=== PATIENT | male | born 1955 | race Two or more races ===

== ENCOUNTER 2017-02-16 07:32 | Emergency (ER) | payer BC ==
[2017-02-16 07:39] VITALS: BMI 32.3
[2017-02-16] MEDS ORDERED: KETOROLAC TROMETHAMINE 30 MG/1 ML VIAL IVPUSH ONE (08:07)
[2017-02-16] MEDS ORDERED: SODIUM CHLORIDE 1,000 ML IV ONE (08:07)
--- NOTE | 2017-02-16 08:09 | PDOC ---
History of Present Illness <Jonathan Watters - Last Filed: 02/16/17 10:09> - History of Present Illness Initial Comments: 02/16/17 08:33 The patient is a 61 year old male, with a significant past medical history of kidney stones (last dx 15 yrs ago), who presents to the emergency department with right flank pain since 1 am this morning. Patient states that around 1 am, he began experiencing sudden onset of upper epigastric, RUQ and right flank pain, followed by multiple episodes of nausea and vomiting (non-bloody, non bilious) (10x). He took 800 mg Ibuprofen around 2 am.. He describes his right flank pain as sharp, constant,radiates to abdomen, and rates 9/10. He also reports diarrhea (5x). He also reports that he felt like he had to pass a BM but he did not pass anything. He denies excessive NSAIDS use, or EtOH use. He states the pain feels like his usual kidney stones. He denies any recent fevers, chills, headache or dizziness. He denies any recent chest pain, pressure, or shortness of breath. He denies any recent dysuria, frequency, urgency or hematuria. Allergies:NKDA Past surgical history: None reported. Social History: Nonsmoker. Social EtOH use and no recreational drug use. <Vandana Davis - Last Filed: 02/16/17 10:19> - General Chief Complaint: Pain, Acute Stated Complaint: SIDE PAIN Time Seen by Provider: 02/16/17 07:43 Past History - Past Medical History COPD: No Kidney Stones: Yes - Suicide/Smoking/Psychosocial Hx Smoking History: Never smoked <Jonathan Watters - Last Filed: 02/16/17 10:09> <Vandana Davis - Last Filed: 02/16/17 10:19> - Past Medical History Allergies/Adverse Reactions: Allergies Allergy/AdvReac Type Severity Reaction Status Date / Time No Known Allergies Allergy Verified 02/16/17 07:35 Home Medications: Ambulatory Orders Ibuprofen 800 mg PO QID PRN 02/16/17 Oxycodone HCl/Acetaminophen [Percocet 5-325 mg Tablet] 1 - 2 tab PO TID PRN #14 tab MDD 6 tabs 02/16/17 Tamsulosin HCl [Flomax] 0.4 mg PO DAILY #7 cap.er.24h 02/16/17 Review of Systems - Review of Systems Constitutional: No: Chills, Fever Respiratory: No: Cough, Shortness of Breath Cardiac (ROS): No: Chest Pain, Lightheadedness, Syncope ABD/GI: Yes: Diarrhea, Nausea, Vomiting : Yes: Flank Pain. No: Dysuria, Hematuria All Other Systems: Reviewed and Negative <Jonathan Watters - Last Filed: 02/16/17 10:09> *Physical Exam - Vital Signs Last Vital Signs Temp Pulse Resp BP Pulse Ox 97.8 F 72 18 139/105 98 02/16/17 07:36 02/16/17 07:36 02/16/17 07:36 02/16/17 07:36 02/16/17 07:36 <Jonathan Watters - Last Filed: 02/16/17 10:09> - Vital Signs Last Vital Signs Temp Pulse Resp BP Pulse Ox 97.8 F 89 18 139/105 100 02/16/17 07:36 02/16/17 08:08 02/16/17 07:36 02/16/17 07:36 02/16/17 08:08 - Physical Exam Comments: 02/16/17 08:50 GENERAL: The patient is awake, alert, and fully oriented, in no acute distress. HEAD: Normal with no signs of trauma. EYES: Pupils equal, round and reactive to light, extraocular movements intact, sclera anicteric, conjunctiva clear with no pallor. ENT: Ears normal, nares patent, oropharynx clear without exudates. Moist mucous membranes. NECK: Normal range of motion, supple without lymphadenopathy, JVD, or masses. LUNGS: Breath sounds equal, clear to auscultation bilaterally. No wheeze/ crackles. HEART: Regular rate and rhythm, normal S1 and S2 without murmur or rub. BACK: CVA tenderness. ABDOMEN: Epigastric/RUQ discomfort, no guarding or rebound. Remainder soft, nontender. Small umbilical hernia - easily reducible. No guarding or rebound. No hepatosplenomegaly. EXTREMITIES: Normal range of motion, no edema. No clubbing or cyanosis. No cords, erythema, or tenderness. NEUROLOGICAL: Cranial nerves II through XII grossly intact. Normal speech, normal gait. PSYCH: Normal mood, normal affect. SKIN: Warm, Dry, normal turgor, no rashes or lesions noted. <Vandana Davis - Last Filed: 02/16/17 10:19> Heart Score/ECG Review #1 ECG reviewed & interpreted by me at: 09:10 General ECG Interpretation: Sinus Rhythm, Normal Rate (82), Normal Intervals ( qtc 401), No acute ischemic changes (nonspecific t wave changes inferior and lateral) <Jonathan Watters - Last Filed: 02/16/17 10:09> ED Treatment Course - LABORATORY CBC & Chemistry Diagram: 02/16/17 08:10 02/16/17 08:10 <Jonathan Watters - Last Filed: 02/16/17 10:09> - LABORATORY CBC & Chemistry Diagram: 02/16/17 08:10 02/16/17 08:10 - RADIOLOGY Radiograph Interpretation: 02/16/17 10:17 CT abdomen& pelvis w/o contrast Impression: 4 mm mid right urethral calculus with mild hydronephrosis Additional bilateral nephrolithiasis. Prostatic enlargement. Reported by: Jeovany Collins - Medications Given in the ED: ED Medications Discontinued Medications Generic Name Dose Route Start Last Admin Trade Name Freq PRN Reason Stop Dose Admin Ketorolac Tromethamine 30 mg 02/16/17 08:07 02/16/17 08:11 Toradol Injection - IVPUSH 02/16/17 08:08 30 mg ONCE ONE Administration <Vandana Davis - Last Filed: 02/16/17 10:19> Medical Decision Making - Medical Decision Making 02/16/17 08:57 A portion of this note was documented by scribe services under my direction. I have reviewed the details of the note, within reason, and agree with the documentation with the following case summary and management plan written by me. 61-year-old male with no significant past medical history other than kidney stones in the past presents with acute onset of right flank and right upper abdominal/epigastric pain at 1 AM, persistent since onset and associated with several episodes of nonbloody nonbilious emesis and nonbloody diarrhea, no fevers or chills, no dysuria or hematuria. Pain is similar to past kidney stone pain as per patient, denies any history of recurring postprandial right upper quadrant pain, denies any excessive EtOH or NSAID use. Vital signs normal. Well-appearing, comfortable Cardiopulmonary exam is normal Epigastric and right upper quadrant discomfort to palpation, also with right CVA tenderness. Otherwise benign abdominal exam, soft and nondistended with reducible small umbilical hernia 61-year-old male with right flank/right upper quadrant/epigastric discomfort that began acutely around 1 AM, associated with both vomiting and diarrhea, now seemingly resolved. Patient relates this to his renal colic, rule out biliary colic or gastritis/pancreatitis. Seems less likely consistent with cardiopulmonary process, abdominal exam is otherwise normal. Labs, urinalysis EKG Pain control, antiemetic IV fluids Reassess. Imaging as per results 02/16/17 09:01 no leukocytosis, nl Cr, nl LFTs, lipase pending. UA with blood, 179 RBC. Does seem more consistent with renal stone now, but given the atypical upper abd sxs and diarrhea, will proceed with imaging. 02/16/17 10:01 CTAP confirms R mid-ureteral stone with mild hydro, no other pathology. Feels better, more comfortable, pain resolved. Will d/c with f/u. Understands return criteria. <Jonathan Watters - Last Filed: 02/16/17 10:09> *DC/Admit/Observation/Transfer <Jonathan Watters - Last Filed: 02/16/17 10:09> - Attestations Scribe Attestion: 02/16/17 08:53 Documentation prepared by Vandana Davis, acting as medical billing assistant for Jonathan Watters MD. <Vandana Davis - Last Filed: 02/16/17 10:19> Diagnosis at time of Disposition: Right flank pain, Kidney stone on right side - Discharge Dispostion Disposition: HOME Condition at time of disposition: Improved - Prescriptions Prescriptions: Oxycodone HCl/Acetaminophen [Percocet 5-325 mg Tablet] 1 - 2 tab PO TID PRN #14 tab MDD 6 tabs PRN Reason: Pain Tamsulosin HCl [Flomax] 0.4 mg PO DAILY #7 cap.er.24h - Referrals Referrals: Pantera Murphy MD [Staff Physician] - - Patient Instructions Printed Discharge Instructions: DI for Kidney Stones Additional Instructions: Activity as tolerated. Stay hydrated. Ibuprofen 600 mg every 8 hours as needed for moderate pain, Percocet as prescribed as needed for severe pain. Percocet can make you lightheaded, so take proper precautions. Your pain is due to a 4mm kidney stone on the Right side. In addition to pain medicine, also take Flomax to help pass the stone. Continue your medications as previously prescribed by your physician. You should follow up with your primary doctor and a urologist (consider calling Dr. Murphy for an appointment) as soon as possible regarding today's emergency department visit. Return to the emergency department for any new or concerning symptoms, particularly persistent or worsening pain, difficulty urinating, fever/chills, persistent vomiting or dehydration.
[2017-02-16] MEDS ORDERED: KETOROLAC TROMETHAMINE 30 MG/1 ML VIAL ONE (08:21)
[2017-02-16 08:30] LABS: URINE APPEARANCE SLCLOUDY; URINE BILIRUBIN NEGATIVE (NEGATIVE); URINE BLOOD 3+ (NEGATIVE); URINE COLOR YELLOW; URINE GLUCOSE (UA) 1+ (NEGATIVE); URINE KETONE TRACE (NEGATIVE); URINE NITRITE NEGATIVE (NEGATIVE); URINE UROBILINOGEN NEGATIVE mg/dL (0.2-1.0)
[2017-02-16 08:33] LABS: BASOPHIL 0.2 % (0-2.0); EOSINOPHIL 0.1 % (0-4.5); MCH 31.2 pg (25.7-33.7); MCHC 34.1 g/dl (32.0-35.9); MEAN CELL VOLUME 91.3 fl (80-96); MEAN PLT VOLUME 8.9 fl (7.5-11.1); NEUTROPHILS 84.7 % (42.8-82.8); PLATELET COUNT 234 K/MM3 (134-434); WHITE BLOOD COUNT 7.4 K/mm3 (4.0-10.0)
[2017-02-16] MEDS ORDERED: FAMOTIDINE IV 20 MG/12 ML VIAL IVPUSH ONE (08:43)
[2017-02-16] MEDS ORDERED: ONDANSETRON 4 MG/2 ML VIAL IVPUSH ONE (08:43)
[2017-02-16 08:45] LABS: URINE PROTEIN 1+ (NEGATIVE)
[2017-02-16 08:52] LABS: ALBUMIN 4.1 g/dl (3.4-5.0); ANION GAP 5 (8-16); CALCIUM 10.2 mg/dL (8.5-10.1); CO2 31 mmol/L (21-32); CREATININE 1.2 mg/dL (0.7-1.3); GLUCOSE,RANDOM 174 mg/dL (74-106); SGOT/AST 23 U/L (15-37); SGPT/ALT 45 U/L (12-78)
[2017-02-16 08:53] LABS: ALK PHOS 57 U/L (45-117); BILIRUBIN,TOTAL 0.5 mg/dL (0.2-1.0); TOT PROT 7.2 g/dl (6.4-8.2)
[2017-02-16] MEDS ORDERED: ONDANSETRON 4 MG/2 ML VIAL ONE (08:55)
[2017-02-16] MEDS ORDERED: FAMOTIDINE 20 MG/50 ML IVPB 20 MG/50 ML MG IVPB ONE (08:55)
[2017-02-16 09:03] LABS: URINE MUCUS RARE; URINE RBC 179 /hpf (0-3); URINE WBC <1 /hpf (3-5)
[2017-02-16 10:20] VITALS: BP 130/72; PULSE 78; TEMP 98.1
--- NOTE | 2017-02-16 12:41 | EKG ---
Test Reason : Blood Pressure : / mmHG Vent. Rate : 082 BPM Atrial Rate : 082 BPM P-R Int : 182 ms QRS Dur : 082 ms QT Int : 344 ms P-R-T Axes : 048 -08 010 degrees QTc Int : 401 ms NORMAL SINUS RHYTHM NONSPECIFIC T WAVE ABNORMALITY ABNORMAL ECG NO PREVIOUS ECGS AVAILABLE Confirmed by LYNDA SKINNER MD ([id number]) on 02/16/2017 12:40:38 PM Referred By: Confirmed By:LYNDA SKINNER MD
[2017-02-16 17:43] LABS: URINE LEUK ESTERASE Negative (NEGATIVE)
== END 2017-02-16 10:18 | disposition home or self-care (01) ==
LOC: JER 07:32
PROC: 3E0333Z Introduction of Anti-inflammatory into Peripheral Vein, Percutaneous Approach (ICD-10-PCS; principal; 2017-02-16)
PROC: 3E033GC Introduction of Other Therapeutic Substance into Peripheral Vein, Percutaneous Approach (ICD-10-PCS; 2017-02-16)
PROC: 3E033GC Introduction of Other Therapeutic Substance into Peripheral Vein, Percutaneous Approach (ICD-10-PCS; 2017-02-16)
DX: N13.2 Hydronephrosis with renal and ureteral calculous obstruction (principal); Z87.442 Personal history of urinary calculi
CPT/HCPCS: 36415; 74176-TC; 80053; 81003; 81015; 83690; 85025; 93005; 93010; 99283-25